=== PATIENT | male | born 1975 | race African-American/Black ===

== ENCOUNTER 2019-01-08 12:51 | Observation (INO) | payer SELFPAY ==
[2019-01-08] MEDS ORDERED: Dexamethasone 4 mg/ml Vial ONE (14:19)
[2019-01-08] MEDS ORDERED: Clindamycin/D5W 900 mg/50 ml Premix Bag ONE (14:19)
[2019-01-08 14:40] LABS: #Monocytes 0.2 thou/uL (0.11-0.59); #Neutrophils 11.2 thou/uL (1.40-6.50); %Basophils 0.1 % (0.0-1.0); %Lymphocytes 8.1 % (21.0-51.0); %Monocytes 1.2 % (0.0-10.0); %Neutrophils 90.5 % (42.0-75.0); Hemoglobin 13.9 g/dL (14.0-18.0); Mean Corpuscular Hemoglobin 29.6 pg (27.0-31.0); Mean Corpuscular Volume 89.8 fL (78.0-98.0); Mean Platelet Volume 8.3 fL (7.4-10.4); Platelet Count 200 thou/uL (130-400); RBC Distribution Width 11.6 % (11.5-14.5); White Blood Cell (WBC) Count 12.4 thou/uL (4.8-10.8)
--- NOTE | 2019-01-08 14:42 | PDOC.FPRHP ---
- History of Present Illness Chief Complaint: Rash, Itching, Throat Tightening History of Present Illness: 43yo AAM with h/o Asthma and MICHAEL who presents with facial swelling as transfer for [facility]. Pt was diagnosed with strep 2 days ago at ED, took first dose of toradol, amoxicillin, and reglan at 2200 on 01/07/19. Within 10 minutes started to feel itchy, sweating, and a throat tightness and facial swelling. Swelling continued to worsen and he presented to [facility] at about 0100 on 01/08. Given steriods, epi, benadryl with improvement of sxs. CT showed concern for epiglottis and he was transferred to [place]. Pt currently feeling much better but feels face still swollen. Denies any SOB, drooling, difficulty swallowing, CP. He initially had a rash over all his arms and upper body which has since resolved. This has never happened before. No known medication allergies. ED Course: CT Neck: Extensive soft tissue edema bilaterallyu as well as presumed reactive adenopathy. Correlate for evidence of infectious/inflammatory process. This does involve the bilateral platysma muscle and therefore reactive component of myosititis is suggested. No discrete soft tissue gas.. Apposition of mucosal surface of the oropharynx. Correlate w/ direct visualization. Mild prominence of the lingual tonsils Nonspecific mild prominence of esophageal wall. Correlate clinically to exclude evidence of esophagitis or other esophageal mural infiltrative pathology. Given .25 mg Epi, 125 mg Solumedrol, Pepcid 20 mg, and Benadryl 50 mg. Given Racemic Epi nebulizer. Given another dose of 125 mg Solumedrol - Allergies/Adverse Reactions Allergies Allergy/AdvReac Type Severity Reaction Status Date / Time bee pollen Allergy Verified 01/08/19 17:01 ketorolac [From Toradol] Allergy Verified 01/08/19 17:01 metoclopramide [From Reglan] Allergy Verified 01/08/19 17:01 Penicillins Allergy Verified 01/08/19 17:01 - Home Medications Comments: States he uses a proair inhaler daily. - History PMHx: Hx HTN, Asthma, MICHAEL PSHx: L inguinal hernia repair in 2014 FHx:No known history of lung disease, angioedema, DM, CV disease Social: EtOH, 2 24oz beers daily, 30ppy smoking history, quit few years back. Occasional THC, last night was last. - Review of Systems General: denies: fever/chills, weight/appetite/sleep changes, night sweats Eyes: denies: vision changes ENT: denies: nasal congestion, rhinorrhea Respiratory: reports: other (neck swelling, initialy throat tightness that has since resolved.). denies: cough, congestion, shortness of breath Cardiovascular: denies: chest pain, palpitation, edema Gastrointestinal: denies: nausea, vomiting, diarrhea, constipation Genitourinary: denies: dysuria Skin: denies: rashes Musculoskeletal: denies: pain Neurological: denies: numbness - Vital signs BP: [133/80] HR: [81] RR: [14] Tmax: [97.8] Pox: [95]% on RA] Wt: [96kg] - Physical Exam Constitutional: NAD, awake, alert and oriented, well developed HEENT: normocephalic and atraumatic, PERRLA, EOMI, MMM -HEENT: Swelling of posterior pharynx, Mallampati III Neck: FROM, trachea midline -Neck: moderate swelling of neck including supraclavicular region and face. Chest: no-tender to palpation Heart: RRR, normal S1/S2, no murmurs/rubs/gallops, pulses present, no edema -Lungs: Course breath sounds throughout, tight. No audible wheeze, rhonchi, or rales. Abdomen: soft, non-tender, bowel sounds present, no masses/distention Musculoskeletal: normal structure Neurological: no focal deficit, CN II-XII intact, normal sensation Skin: no rash/lesions Psychiatric: normal mood and affect, good judgment and insight FMR H&P: Results - Labs Result Diagrams: 01/08/19 14:13 01/08/19 17:34 Lab results: WBC 12.4 thou/uL (4.8-10.8) H 01/08/19 14:13 Hgb 13.9 g/dL (14.0-18.0) L 01/08/19 14:13 Hct 42.2 % (42.0-52.0) 01/08/19 14:13 MCV 89.8 fL (78.0-98.0) 01/08/19 14:13 Plt Count 200 thou/uL (130-400) 01/08/19 14:13 Neutrophils % 90.5 % (42.0-75.0) H 01/08/19 14:13 FMR H&P: A/P - Problem List (1) Neck swelling Current Visit: Yes Status: Acute Priority: High Code(s): R22.1 - LOCALIZED SWELLING, MASS AND LUMP, NECK (2) Asthma Current Visit: Yes Status: Chronic Code(s): J45.909 - UNSPECIFIED ASTHMA, UNCOMPLICATED Qualifiers: Asthma severity: moderate Asthma persistence: persistent (3) MICHAEL (obstructive sleep apnea) Current Visit: Yes Status: Chronic Code(s): G47.33 - OBSTRUCTIVE SLEEP APNEA (ADULT) (PEDIATRIC) - Plan 43yo AAM with h/o Asthma and MICHAEL presents with neck swelling after taking Amoxil for positive strep. 1. Neck swelling, anaphylaxis vs epiglottis - Step +, sxs occurred after taking Amoxil, reglan, toradol - Protecting airway, satting well, NAD - Will start Vanc for strep 2/2 possibly new amoxil allergy - ENT, Dr. Lucas, consulted from ED, apprec recs - Solumedrol 60mg qd, Pepcid BID, Benadryl - Will check mono spot - Consult Pulm, Dr. Stevenson, as patient will be in IMCU for observation, apprec recs 2. Asthma - Appears to be moderate persistant, however patient uses rescue inhaler every night, ran out of meds a few days ago - Duoneb now and q4h prn. Will monitor 3. MICHAEL - monitor CPAP Diet: NPO, speech eval and ENT eval VTE: SCDs Code: Full Disposition/LOS: Pending improvement of sxs and eval by ENT. Observing in IMCU. Anticipate discharge <48 hours. FMR H&P: Upper Level - Pertinent history I was present with the kinesiology internship during the HPI. I scribed for him. I edited the above history as I saw fit. Pt took 3 different medications which included toradol, amoxicillin and reglan. He then seemed to get an allergic reaction. Was dx with sinusitis and why he was px these medicines. - Pertinent findings Pt face appears swollen. No visual rash. Unable to fully visualize the back of the patients throat. Pt denies any SOB at this time. - Plan Date/Time: 01/08/19 7562 I, Temo Velasco, PGY-3, have evaluated this patient and agree with findings/ plan as outlined by kinesiology internship resident. Pertinent changes/additions are listed here. Angioedema vs Epiglotitis- I believe to be more of an allergic response on top of strep pharyngitis. Will continue with daily high dose steroids and benadryll. Will admit to IMCU for close observation. Pt denies any SOB or continued throat swelling at this time. ENT consulted from ER and will await recommendations. Will keep NPO until ENT evaluates. Will want bedside swallow.
[2019-01-08 15:00] LABS: ALT (SGPT) 40 U/L (8-55); AST (SGOT) 22 U/L (5-34); Albumin 4.2 g/dL (3.5-5.0); Alkaline Phosphatase 56 U/L (40-150); Anion Gap 12 mmol/L (10-20); BUN (Urea Nitrogen) 12 mg/dL (8.9-20.6); Bilirubin, Total 0.5 mg/dL (0.2-1.2); CK (CPK) 255 U/L (30-200); Calc. Creatinine Clearance 0 mL/min (70-130); Calcium 9.2 mg/dL (7.8-10.44); Carbon Dioxide 23 mmol/L (22-29); Chloride 106 mmol/L (98-107); Estimated GFR-MDRD Greater than 90; Globulin 3.1 g/dL (2.4-3.5); Glucose 127 mg/dL (70-105); Potassium 4.3 mmol/L (3.5-5.1); Protein, Total 7.3 g/dL (6.0-8.3); Sodium 137 mmol/L (136-145)
[2019-01-08] MEDS ORDERED: Ondansetron PF 4 MG/2 ML Vial IVP PRN (16:59)
[2019-01-08] MEDS ORDERED: Ondansetron ODT 4 MG TAB PO PRN (16:59)
[2019-01-08] MEDS ORDERED: diphenhydrAMINE 25 MG CAP PO PRN (16:59)
[2019-01-08] MEDS ORDERED: Senokot S 8.6-50 MG TAB PO PRN (16:59)
[2019-01-08] MEDS ORDERED: Calcium Carbonate 500 MG ChewTAB PO PRN (16:59)
[2019-01-08] MEDS ORDERED: Acetaminophen 325 MG TAB PO PRN (16:59)
[2019-01-08 17:05] VITALS: BMI 30.9
--- NOTE | 2019-01-08 17:06 | HP ---
I have examined the patient. I have discussed the case with Dr. Tyler Pillai and agreed with his assessment and plan. HISTORY OF PRESENT ILLNESS: Mr. Loo is a pleasant 43-year-old black male patient, previously in good health. Last night around 10 o'clock in treatment for a "strep throat," he took . Within 15 minutes, he began to swell in the head and neck area and have symptoms like someone was "choking him." He went to the [facility] and was treated appropriately with epinephrine and steroids. However, because of the extensive swelling in the area of the head and neck, it was elected to send him for higher level of care in case ENT consultation was necessary. He was therefore transported to [facility], where he arrived at around 1 o'clock this afternoon. By that time, he was stable, but still had a great deal of swelling in the facial area, neck, and the back of his throat. He did not have stridor. He did not have wheezing. His blood pressure was normal. PHYSICAL EXAMINATION: VITAL SIGNS: Now his blood pressure is 130/80, his pulse rate is 80, his respirations are 14 and not labored. GENERAL: He is afebrile. He is awake, alert, in no distress. He does not demonstrate any stridor. He does not demonstrate any respiratory distress at all. EARS, NOSE, AND THROAT: There is a great deal of swelling in the area of his cheeks, neck, supraclavicular regions, and the back of his throat. As stated above, though, however, he does not have stridor. He is able to speak in complete sentences and does not demonstrate any respiratory distress or use of accessory muscles. The throat shows no erythema, but a great deal of swelling in the posterior oropharynx. The TMs are clear. CARDIAC: Heart, rhythm is regular. No gallop or murmur noted. LUNGS: Clear without rales or wheezes. He is not using accessory muscles and is in no distress. ABDOMEN: Flat and soft without guarding, rebound, or rigidity. NEUROLOGIC: Awake, alert, and oriented x3. No focal deficits. LABORATORY DATA: CBC; white count is 12,400, hemoglobin is 13.9, hematocrit is 42.2 with an MCV of 89. Chemistries; his sodium is 137, potassium is 4.3, chloride 106, bicarb is 23, BUN 12, and creatinine 0.84, glucose is 127. Creatine kinase is slightly elevated at 255. Liver enzymes are normal. ASSESSMENT: Anaphylaxis, now subacute with appropriate treatment at [facility] yesterday. PLAN: We will continue to monitor the patient. We will consult ENT, although at this time, he does not appear to have imminent upper airway compromise. We will continue with Solu-Medrol and Benadryl and keep the epinephrine on standby. Job ID: [id number]
[2019-01-08 17:56] LABS: Anion Gap 14 mmol/L (10-20); BUN (Urea Nitrogen) 12 mg/dL (8.9-20.6); Calc. Creatinine Clearance 137 mL/min (70-130); Calcium 8.8 mg/dL (7.8-10.44); Carbon Dioxide 19 mmol/L (22-29); Chloride 110 mmol/L (98-107); Estimated GFR-MDRD 85; Glucose 122 mg/dL (70-105); Potassium 4.9 mmol/L (3.5-5.1); Sodium 138 mmol/L (136-145)
[2019-01-08 18:07] LABS: MONO NEGATIVE CONTROL ZONE White (Negative) (White); MONO POSITIVE CONTROL Pink Line (Positive) (PINK/RED); Mononucleosis NEGATIVE (NEGATIVE)
[2019-01-08] MEDS: Famotidine 20 MG TAB PO SCH (20:54)
[2019-01-08] MEDS: Vancomycin HCl 1.25 GM in Sodium Chloride 0.9% 250 ML 250 ML IVPB SCH (21:35)
--- NOTE | 2019-01-09 03:12 | CON ---
DATE OF CONSULTATION: 01/08/2019 CONSULTING PHYSICIAN: Family Medicine Residency Service. REASON FOR CONSULTATION: Anaphylaxis. HISTORY OF PRESENT ILLNESS: A 43-year-old male who apparently started on some Toradol, amoxicillin, and Reglan yesterday after presenting with headache and ear pain yesterday. It sounds like he was being treated for either otitis or sinusitis. Last night after taking the medication, he began to feel itchy, sweating, had whelps on his arms, had some throat tightness initially presented to the [facility]. He was given some epi and Benadryl. He apparently had a CT of the neck, which was concerning for epiglottitis and he was subsequently transferred here. He says he feels much better after receiving the treatment and he is demanding that he be able to eat. He denies any drooling, any difficulty swallowing. He is not having any difficulty talking to me at this time. PAST MEDICAL HISTORY: Asthma, hypertension, and sleep apnea. PAST SURGICAL HISTORY: Left inguinal hernia repair. FAMILY MEDICAL HISTORY: Unremarkable. SOCIAL HISTORY: Drinks two 24 ounces of beers a day. He has a 30 pack-year history of smoking, but quit 2 years ago. Occasionally smokes marijuana. REVIEW OF SYSTEMS: Twelve-point review of systems is otherwise negative. PHYSICAL EXAMINATION: VITAL SIGNS: Temperature 97.8, pulse 81, blood pressure 133/80, O2 saturation 95%. GENERAL: He is awake, alert, in no distress. HEENT: He has a class 4 Mallampati airway, but no obvious or profound tongue swelling. NECK: Increased girth. No tenderness to palpation. He has some shotty lymphadenopathy. LUNGS: Clear. CARDIAC: S1, S2. Regular. ABDOMEN: Soft, nontender. EXTREMITIES: No bruising, rashes, or whelps noted. LABORATORY DATA: White blood cell count 12.4, hematocrit 42.2, and platelet count 200. Sodium 138, potassium 4.9, chloride 100, CO2 of 19, BUN 12, creatinine 0.9, glucose 122. Davis screen was negative. ASSESSMENT: 1. This sounds like an anaphylactic reaction from amoxicillin. NSAIDs can also cause anaphylaxis. He has responded to treatment. Recommendation, observe in the hospital overnight, hopeful discharge tomorrow. Continue the steroids and taper rapidly. 2. The patient will need referral to an balancing machine set up worker as an outpatient for further workup of anaphylaxis and perhaps desensitization if he needs it. Job ID: [id number]
--- NOTE | 2019-01-09 06:37 | PDOC.FM ---
- Subjective Subjective: No events overnight. Pt denies any SOB or difficulty swallowing. Nurse states he has been drinking liquids and ate pudding and a sandwich without difficulty. Pt is eager to go home. - Objective Vital Signs & Weight: Vital Signs (12 hours) Temp Pulse Resp BP BP Pulse Ox 01/09/19 04:05 97.9 F 76 18 96/51 L 96/51 L 98 01/08/19 23:50 98.1 F 81 16 101/58 L 98 01/08/19 20:00 98.2 F 87 20 131/86 131/86 98 Weight Weight 97.976 kg Most Recent Monitor Data Heart Rate from ECG 77 NIBP 96/51 NIBP BP-Mean 66 Respiration from ECG 14 SpO2 87 I&O: 01/07/19 01/08/19 01/09/19 06:59 06:59 06:59 Intake Total 510 Output Total 1065 Balance -555 Result Diagrams: 01/09/19 07:01 01/09/19 07:01 Phys Exam - Physical Examination Constitutional: NAD HEENT: PERRLA, moist MMs malenpoty 4 - difficult to assess pt's baseline vs edema Neck: no JVD, supple, full ROM soft tissue edema to lower neck into supraclavicular region -worse on rt Respiratory: no wheezing, no rales, no rhonchi, clear to auscultation bilateral Cardiovascular: RRR, no significant murmur, no rub Gastrointestinal: soft, non-tender, no distention, positive bowel sounds Musculoskeletal: no edema, pulses present Neurological: non-focal, moves all 4 limbs Lymphatic: no nodes Psychiatric: normal affect, A&O x 3 Skin: no rash, cap refill <2 seconds Dx/Plan (1) Anaphylaxis Code(s): T78.2XXA - ANAPHYLACTIC SHOCK, UNSPECIFIED, INITIAL ENCOUNTER Status : Acute (2) Neck swelling Code(s): R22.1 - LOCALIZED SWELLING, MASS AND LUMP, NECK Status: Acute (3) Asthma Code(s): J45.909 - UNSPECIFIED ASTHMA, UNCOMPLICATED Status: Chronic Qualifiers: Asthma severity: moderate Asthma persistence: persistent (4) MICHAEL (obstructive sleep apnea) Code(s): G47.33 - OBSTRUCTIVE SLEEP APNEA (ADULT) (PEDIATRIC) Status: Chronic - Plan Plan: Neck swelling, anaphylaxis vs epiglottis - Step +, sxs occurred after taking Amoxil, reglan, toradol - Protecting airway, satting well, NAD - Will start Vanc for strep 2/2 possibly new amoxil allergy - ENT, Dr. Lucas, consulted from ED, apprec recs - Solumedrol 60mg qd, Pepcid BID, Benadryl - Monospot neg - Consult Pulm, Dr. Stevenson: Agrees this is likely an anaphylactic reaction and to continue steroids with fast taper - Will de-escalate abx with clinical response Asthma - Appears to be moderate persistant, however patient uses rescue inhaler every night, ran out of meds a few days ago - Duoneb now and q4h prn. Will monitor MICHAEL - monitor CPAP Diet: NPO, speech eval and ENT eval VTE: SCDs Code: Full Disposition/LOS: Sx rapidly improving, some residual swelling present although pt does not appreciate any beyond his baseline. Expect dc later today if clinical condition is maintained and continue to improve. Addendum - Attending - Attending Attestation Date/Time: 01/09/19 8736 I personally evaluated the patient and discussed the management with Dr. Bynum. I agree with the History, Examination, Assessment and Plan documented above with any addition or exceptions noted below. Patient here for airway monitoring in the setting of suspected allergic vs anaphylactic reaction to outpatient medications. He is doing well and feels normal today. He is on steroids. ENT has been consulted. Pulm on board and sees no issues with airway. Monitor through the day but possible discharge if doing well.
[2019-01-09 07:20] LABS: Mean Corpuscular HGB CONC 32.7 g/dL (32.0-36.0); Mean Corpuscular Volume 88.6 fL (78.0-98.0); Mean Platelet Volume 8.3 fL (7.4-10.4); Platelet Count 192 thou/uL (130-400); RBC Distribution Width 11.8 % (11.5-14.5); Red Blood Cell (RBC) Count 4.49 mill/uL (4.70-6.10); White Blood Cell (WBC) Count 17.8 thou/uL (4.8-10.8)
[2019-01-09 07:36] LABS: Anion Gap 12 mmol/L (10-20); BUN (Urea Nitrogen) 12 mg/dL (8.9-20.6); CK (CPK) 174 U/L (30-200); Calc. Creatinine Clearance 163 mL/min (70-130); Calcium 8.9 mg/dL (7.8-10.44); Carbon Dioxide 24 mmol/L (22-29); Chloride 106 mmol/L (98-107); Estimated GFR-MDRD Greater than 90; Glucose 124 mg/dL (70-105); Potassium 4.1 mmol/L (3.5-5.1); Sodium 138 mmol/L (136-145)
[2019-01-09 07:58] LABS: Anisocytosis SLIGHT = 6-15 cells (100X) (0-5/hpf); Band 1 % (5-11); Large Platelets SLIGHT; Lymphocytes 9 % (21-51); MDiff Complete? YES; Monocytes 8 % (0-10); Neutrophil 81 % (42-75); Platelet Morphology Comment Appears Adequate; Reactive Lymphocytes 1 % (0-10)
[2019-01-09] MEDS: Famotidine 20 MG TAB PO SCH (08:27)
[2019-01-09] MEDS: Vancomycin HCl 1.25 GM in Sodium Chloride 0.9% 250 ML 250 ML IVPB SCH (08:32)
[2019-01-09] MEDS ORDERED: methylPREDNISolone Sod Succ/PF 125 MG/2 ML VIAL IVP SCH (09:00)
--- NOTE | 2019-01-09 10:32 | PRG ---
DATE OF SERVICE: 01/09/2019 SUBJECTIVE: The patient is doing well, wants to go home. He has no complaints. OBJECTIVE: VITAL SIGNS: On exam, temperature is 97.5, pulse 84, respirations 15, O2 saturation 98%, and blood pressure 117/72. HEENT: Unremarkable. NECK: No adenopathy or JVD. CHEST: Clear to auscultation. CARDIAC: S1 and S2 regular without murmur. ABDOMEN: Soft and nontender. EXTREMITIES: No rashes. No welts. LABORATORY DATA: Reviewed. ASSESSMENT: Anaphylactic reaction likely to penicillin. PLAN: He is safe to go home. He should avoid penicillin and amoxicillin and he needs an EpiPen prescription. He should see an rag shredder as an outpatient. Job ID: [id number]
[2019-01-09 11:21] VITALS: TEMP 98
[2019-01-09 12:18] VITALS: BP 129/71
--- NOTE | 2019-01-09 22:30 | DIS ---
DATE OF ADMISSION: 01/08/2019 DATE OF DISCHARGE: 01/09/2019 RESIDENT: Seth Bynum DO ADMITTING ATTENDING: Ericka Calle MD DISCHARGE ATTENDING: Syed Mendoza MD CONSULTS: Pulmonology, Len Stevenson MD PROCEDURES: None. PRIMARY DIAGNOSIS: Anaphylaxis. SECONDARY DIAGNOSES: Neck swelling, obstructive sleep apnea, and asthma. DISCHARGE MEDICATIONS: 1. Atorvastatin 20 mg at bedtime. 2. EpiPen 2-Mando 0.3 mg IM one p.r.n. for severe allergic reaction. 3. Prednisone 10 mg tablets, 40 mg tomorrow and 20 mg the next day. DISCONTINUED MEDICATIONS: None. HISTORY OF PRESENT ILLNESS AND HOSPITAL COURSE: The patient is a 43-year-old male with history of asthma and MICHAEL, who presents with facial swelling as a transfer from [facility]. The patient was diagnosed with strep pharyngitis two days ago in the ED and took his first dose of Toradol, amoxicillin, Reglan, and within 10 minutes, started to feel itchy, sweating, and throat tightness with facial edema. This continued to worsen, so he presented to the [facility] and was given steroids, Epi, and Benadryl with some improvement in his symptoms. CT showed concern for epiglottitis and he was transferred here. Upon arrival, the patient was feeling much better and denied any shortness of breath, difficulty swallowing or chest pain. The patient's initial rash had resolved by the time he arrived. The patient was given a dose of 125 mg of Solu-Medrol in the ED and admitted to the [facility] for further observation. Steroids were continued along with Benadryl and vancomycin was started to cover for strep pharyngitis. Pulmonology, Dr. Stevenson, was consulted and saw the patient. He felt that this was likely due to anaphylaxis and is not an extension of his strep pharyngitis infection. The patient denied any signs of acute worsening infection including fevers, chills, throat pain or difficulty swallowing. By the next morning, the patient stated that he felt his symptoms were nearly resolved with just some minor residual swelling in the skin of his neck. He denied any shortness of breath, difficulty swallowing, drooling or any remaining symptoms of angioedema. The patient was discharged with recommendation to follow up with an occupational therapy assistant and to avoid all medications that he took prior to his admission. The patient voiced understanding to this and all return precautions. DISPOSITION: Stable. DISCHARGE INSTRUCTIONS: 1. Location: Home. 2. Diet: As tolerated. 3. Activity: As tolerated. No restrictions. 4. Followup: PCP within 7 days, occupational therapy assistant within 1 month. Job ID: [id number]
== END 2019-01-09 15:44 | disposition home or self-care (01) ==
LOC: ERS 12:51 → IMCU/EMU 14:09 → INTOOBSV 14:09
PROVIDERS: ADMIT Family Medicine; ATTEND Family Medicine
DX: T78.2XXA Anaphylactic shock, unspecified, initial encounter (principal); J02.0 Streptococcal pharyngitis; G47.33 Obstructive sleep apnea (adult) (pediatric); J45.909 Unspecified asthma, uncomplicated; I10 Essential (primary) hypertension; Z87.891 Personal history of nicotine dependence; Z79.899 Other long term (current) drug therapy; Z88.0 Allergy status to penicillin; Z88.6 Allergy status to analgesic agent; Z88.8 Allergy status to other drugs, medicaments and biological substances; Z91.030 Bee allergy status
CPT/HCPCS: 36415; 80048; 80053; 82550; 85025; 86308; 96361; 96365; 96366; 96367; 96375; G0378; J1100; J2930; J3370; J3490; J7050; J7620